=== PATIENT | female | born 1950 | race Caucasian/White ===

== ENCOUNTER 2022-12-06 09:30 | Day surgery (SDC) | payer MEDICARE, MEDICAID, SELFPAY ==
[2022-12-06] VITALS (10 sets, daily range): BP systolic 110–125; BP diastolic 76–87; PULSE 75–76; RESP 16–17; TEMP 36.2–36.7; O2SAT 94–97; BMI 22.8
[2022-12-06] MEDS: Lactated Ringers 1,000 ML 15 ML IV (10:18)
--- NOTE | 2022-12-06 10:38 | PCM.HP.BLA ---
History and Physical Date of Admission: 12/06/22 Date of Service: 12/04/22 MR#: [id number] Acct: [id number] Name: SERA SYKES Rep #: [id number] : 1950 Provider: Dr. Tonya Best MD Age/Sex: 72/F Location: [facility] Status: Signed with Addenda ADDENDUM by Liliya Ruiz on 12/05/22 at 1252 Intake Chief Complaint: pleurex cath Allergies wilfred flavor Allergy (Verified 12/04/22 14:14) Swellingcodeine Adverse Reaction (Verified 12/04/22 14:14) OtherIodinated Contrast Media [Iodinated Contrast Media - IV Dye] Adverse Reaction (Verified 12/04/22 14:14) Other Medications acetaminophen 650 mg rectal suppository 650 mg MN Q6H PRN 12/05/22 [History Confirmed 12/05/22] bisacodyl 10 mg rectal suppository 10 mg MN DAILY PRN 12/05/22 [History Confirmed 12/05/22] carvedilol 12.5 mg tablet 12.5 mg PO BID 12/05/22 [History Confirmed 12/05/22] furosemide 40 mg tablet (Lasix) 40 mg PO DAILY 12/05/22 [History Confirmed 12/05/22] gabapentin 300 mg capsule 300 mg PO TID PRN pain 12/05/22 [History Confirmed 12/05/22] haloperidol lactate 2 mg/mL oral concentrate 1 mg PO Q6H PRN 12/05/22 [History Confirmed 12/05/22] hydralazine 50 mg tablet 50 mg PO TID 12/05/22 [History Confirmed 12/05/22] hyoscyamine sulfate 0.125 mg tablet 0.125 mg PO .qid PRN 12/05/22 [History Confirmed 12/05/22] lorazepam 0.5 mg tablet (Ativan) 0.5 mg PO Q8H PRN anxiety 12/05/22 [History Confirmed 12/05/22] mirtazapine 7.5 mg tablet 7.5 mg PO QHS 12/05/22 [History Confirmed 12/05/22] morphine concentrate 100 mg/5 mL (20 mg/mL) oral solution 5 mg PO Q4H PRN 12/05/22 [History Confirmed 12/05/22] olanzapine 5 mg tablet 5 mg PO QHS 12/05/22 [History Confirmed 12/05/22] omeprazole 20 mg capsule,delayed release 20 mg PO DAILY 12/05/22 [History Confirmed 12/05/22] ondansetron 4 mg disintegrating tablet 4 mg PO Q6H PRN nausea 12/05/22 [History Confirmed 12/05/22] oxycodone 5 mg tablet 5 mg PO Q4H PRN 12/05/22 [History Confirmed 12/05/22] oxycodone 5 mg tablet,oral ONLY (not feeding tubes) (Oxaydo) 5 mg PO Q4H PRN pain 12/05/22 [History Confirmed 12/05/22] prochlorperazine maleate 10 mg tablet 10 mg PO Q8H PRN 12/05/22 [History Confirmed 12/05/22] promethazine 12.5 mg tablet 12.5 mg PO .q 8 hours PRN 12/05/22 [History Confirmed 12/05/22] sennosides 8.6 mg tablet (senna) 8.6 mg PO DAILY PRN 12/05/22 [History Confirmed 12/05/22] spironolactone 50 mg tablet (Aldactone) 50 mg PO BID 12/05/22 [History Confirmed 12/05/22] Assessment and Plan Assessment and Plan (1) Abdominal ascites: Status: Acute (2) Mesothelioma: Status: Acute (3) Metastasis to liver: Status: Acute 12/05/224 <Electronically signed by Tonya Best MD> Date Tonya Best MD cc: ~* Signed Intake Vital Signs 07/13/1418:23 12/04/2313:34 Height 5 ft 6 in 5 ft 4 in Weight: 128 lb BMI 21.9 BP 130/93 H Blood Pressure Location Rt brachial Position Sitting Respiration 18 Pulse Oximetry (%) 98 Oxygen Delivery Method room air Intake Visit Reasons: PLEUREX CATH PLACEMENT Chief Complaint: pleurex cath International Marketing Manager Required: No Allergies wilfred flavor Allergy (Verified 12/04/22 14:14) Swellingcodeine Adverse Reaction (Verified 12/04/22 14:14) OtherIodinated Contrast Media [Iodinated Contrast Media - IV Dye] Adverse Reaction (Verified 12/04/22 14:14) Other [facility] Medical History (Updated 12/05/22 @ 10:[address] Tonya Best MD) Acid reflux Arthritis Fatigue Hemorrhoids High blood pressure Mesothelioma Metastasis to liver Nausea SOB (shortness of breath) Weight loss Surgical History (Updated 12/04/22 @ 14:13 by Maryjane Gonzales) S/P foot surgery S/P hemorrhoidectomy S/P right heart catheterization S/P tubal ligation Family History (Updated 12/04/22 @ 14:13 by Maryjane Gonzales) Sister Asthma Breast cancer Diabetes Hypertension Social History (Updated 12/04/22 @ 14:14 by Maryjane Gonzales) Smoking Status: Former smoker alcohol intake: never HPI HPI HPI: 72-year-old female presents due to malignant ascites for Pleurx catheter. Patient is currently on hospice due to mesothelioma and with metastatic disease to the liver as well as large volume ascites. Patient has recently been tapped on 11/15 for about 6 L and 11/26 for about 5 L. Patient previously had an open gallbladder as well as left chest surgery due to mesothelioma in 2020 including rib and lung. Patient is currently not on any blood thinners. Patient states she does start to feel full when the fluid starts to fill back up which she is starting to feel currently as it has been about 11 days between the 2 previous ROS General General: Yes weight change and fatigue; No colon cancer HEENT HEENT: No difficulty swallowing, eye injury, eye surgery, swollen glands or hoarseness Endo Endocrine: No thyroid disease, diabetes mellitus, thyroid cancer, Hair loss, heat intolerance or cold intolerance Musc Musculoskeletal: Yes arthritis; No back problems Cardio Cardiovascular: No chest pain Psych Psychiatric: Yes depression and anxiety Resp Respiratory: Yes shortness of breath, No sleep apnea, No cough, No COPD, No asthma, No emphysema and No wheezing Gastro Gastrointestinal: No abdominal pain, Yes nausea or vomiting, No diarrhea, No constipation, No blood in stool, Yes acid reflux, Yes hemorrhoids, No ulcers, No gallbladder problem and No black,tarry stools Oni Hematologic: No blood thinners, No blood disorders, No bleeding, No anemia and No blood clots Neuro Neurologic: No numbness and No tingling Exam Const General: comfortable and no acute distress HENMT Head: normal to inspection Neck Neck: supple Resp Effort & Inspection: normal respiratory effort Cardio Rate: regular rate GI Inspection: incision (Well-healed right subcostal) Palpation: soft, no guarding, nontender and ascites Skin General: no erythema Neuro General: patient alert, patient awake, patient oriented x3 and CN's II-XI intact bilaterally Extrem General: normal to inspection Psych Affect: normal affect Assessment and Plan Assessment and Plan (1) Abdominal ascites: Status: Acute (2) Mesothelioma: Status: Acute (3) Metastasis to liver: Status: Acute Plan Discussed with patient or family plan to place Pleurx catheter in her abdomen to allow her to drain the ascites at hospice and not having to come back for paracentesis every 11 or so days. Discussed the procedure including risk not limited to bleeding, infection, injury to another organ. Patient currently had no further questions this time. Tonya Best M.D. Pager: [phone] [facility] [address] [place] [address], [facility], [address] [place] [address] Office: [phone] Coding Level of Care Code Off vis,new,level 3 Diagnoses Abdominal ascites R18.8 Mesothelioma C45.9 Metastasis to liver C78.7 12/05/22 1059 <Electronically signed by Tonya Best MD> Date Tonya Best MD
[2022-12-06] MEDS: Cefazolin 2 GM in 0.9% Normal Saline 100 ML IV (11:18)
[2022-12-06] MEDS: Bupivacaine Mpf 0.5% 30 ML VIAL (11:28)
--- NOTE | 2022-12-06 11:52 | PCM.OPRPT ---
Report of Operation Date of Procedure: 12/06/22 Pre-Operative Diagnosis: Abdominal ascites, mesothelioma, metastatic disease to the liver Post-Operative Diagnosis: Same Surgery/Procedure Performed:: Placement of the abdominal Pleurx catheter Description of Surgical Findings:: Drainage of 5 L of straw-colored fluid Surgeon: Tonya Best Type of Anesthesia: Local MAC Anesthesiologist: Ramiro Salgado Special Medications: Ancef 2 g IV x1 Specimen's removed: 5 L serous fluid-not sent Estimated Blood Loss (mL): < 10 cc Description of Procedure: Patient was brought to operating placed spinal operating table. Timeout was completed verifying correct patient, procedure, site, positioning prior to being procedure. MAC anesthesia was induced. the right abdomen was prepped draped in usual sterile fashion. Ultrasound was used to identify the fluid pocket. Local of 0.5% Marcaine was infiltrated at the area of entry. Needle was placed and straw fluid was aspirated?Angiocath was advanced and the guidewire was placed after needle was removed. Additional incision was made with a 15 blade scalpel to tunneled the catheter superiorly to the entry location. The catheter was tunneled to the planned place of entry. Dilators were placed over the wire along with the introducer was then placed. Catheter was placed under fluoroscopy. Straw-colored fluid was drained for about 5 L. Incisions were sutured with horizontal mattress sutures with 3-0 silk in the catheter was sutured in place with 3-0 silk as well. The tube was dressed with the gauze pad from the kit along with 4 x 4's and OpSite. Patient tolerated procedure well. Taken to the postanesthesia care unit in stable condition. Complications none
--- NOTE | 2022-12-06 11:57 | DCINST_ITS ---
Discharge Instructions Diet Discharge Diet: No restrictions Dressing / Incision Call your doctor if your incision/area has: Continuous Slow Oozing and Increased Redness Remove Dressing in: 2 days (2 to 3 days) Follow Up Care Test Results: Test results from this visit will be discussed in further detail at your follow- up appointment, if applicable. Discharge Plan Admission Attending Provider: Tonya Best Primary Care Provider: Luis Mccann Discharge Orders/Prescriptions Prescriptions: Continued hydralazine 50 mg tablet 50 mg PO TID furosemide [Lasix] 40 mg tablet 40 mg PO DAILY sennosides [senna] 8.6 mg tablet 8.6 mg PO DAILY PRN (Reason: constipation) promethazine 12.5 mg tablet 12.5 mg PO .q 8 hours PRN (Reason: nausea and vomiting) acetaminophen 650 mg suppository 650 mg DE Q6H PRN (Reason: pain) Patient Comments: pain bisacodyl 10 mg suppository 10 mg DE DAILY PRN (Reason: constipation) haloperidol lactate 2 mg/mL concentrate 1 mg PO Q6H PRN (Reason: agitation) hyoscyamine sulfate 0.125 mg tablet 0.125 mg PO .qid PRN (Reason: dyspepsia) prochlorperazine maleate 10 mg tablet 10 mg PO Q8H PRN (Reason: nausea and vomiting) morphine concentrate 100 mg/5 mL (20 mg/mL) solution 5 mg PO Q4H PRN (Reason: pain) olanzapine 5 mg tablet 5 mg PO QHS oxycodone 5 mg tablet 5 mg PO Q4H PRN (Reason: pain) omeprazole 20 mg capsule,delayed release(DR/EC) 20 mg PO DAILY carvedilol 12.5 mg tablet 12.5 mg PO BID Rx Instructions: must administer with a meal/food gabapentin 300 mg capsule 300 mg PO TID PRN (Reason: pain) mirtazapine 7.5 mg tablet 7.5 mg PO QHS ondansetron 4 mg tablet,disintegrating 4 mg PO Q6H PRN (Reason: nausea) Oxaydo 5 mg tablet, oral only 5 mg PO Q4H PRN (Reason: pain) lorazepam [Ativan] 0.5 mg tablet 0.5 mg PO Q8H PRN (Reason: anxiety) spironolactone [Aldactone] 50 mg tablet 50 mg PO BID Referrals / Follow Up: Luis Mccann MD [Primary Care Provider] - Disposition Disposition (needs filled in before D/C Order can be placed): Home, Self Care
== END 2022-12-06 13:11 | disposition home or self-care (01) ==
LOC: SDC 09:40 → AC 09:41
PROVIDERS: PCP Family Medicine; Referring Provider Surgery; Visit Provider Surgery
PROC: (CPT 32550; principal; 2022-12-06 10:55)
DX: C45.7 Mesothelioma of other sites (principal); C78.7 Secondary malignant neoplasm of liver and intrahepatic bile duct; R18.0 Malignant ascites; I10 Essential (primary) hypertension; K21.9 Gastro-esophageal reflux disease without esophagitis; Z51.5 Encounter for palliative care; Z79.899 Other long term (current) drug therapy; Z87.891 Personal history of nicotine dependence
CPT/HCPCS: 32550; 00520; 76000; J7120; C1729; J2405

== ENCOUNTER 2023-02-08 19:20 | Emergency (ER) | payer MEDICARE, MEDICAID, SELFPAY ==
[2023-02-08 19:20] VITALS: BP 131/91; PULSE 92; RESP 18; TEMP 36.6; O2SAT 97; BMI 43.1
--- NOTE | 2023-02-08 19:38 | EX.ED.DYSGE1 ---
HPI <CALOS Leach - Last Filed: 02/08/23 19:43> History of Present Illness Chief Complaint: Fall Narrative Narrative: Patient is on hospice for mesothelioma at [facility]. She bent over to put something in the fridge felt lightheaded and struck her head on the ground. No LOC or blood thinners. She has a scalp laceration and presents for evaluation. Denies headache visual changes nausea or vomiting. No other injuries. PFSH <CALOS Leach - Last Filed: 02/08/23 19:43> [facility] Medical History (Updated 02/08/23 @ 19:38 by CALOS Leach) Acid reflux Ambulates with cane Arthritis Cancer Colitis Fatigue Fatty liver Gastric reflux Hemorrhoids High blood pressure History of renal disease Mesothelioma Metastasis to liver Nausea Non-smoker On home oxygen therapy SOB (shortness of breath) Wears dentures Wears glasses Wears hearing aid Weight loss Home Medications acetaminophen 650 mg rectal suppository 650 mg CO Q6H PRN pain 12/05/22 [History Last Taken Unknown] bisacodyl 10 mg rectal suppository 10 mg CO DAILY PRN constipation 12/05/22 [History Last Taken Unknown] carvedilol 12.5 mg tablet 12.5 mg PO BID 12/05/22 [History Last Taken 12/06/22] furosemide 40 mg tablet (Lasix) 40 mg PO DAILY 12/05/22 [History Last Taken Unknown] gabapentin 300 mg capsule 300 mg PO TID PRN pain 12/05/22 [History Last Taken Unknown] haloperidol lactate 2 mg/mL oral concentrate 1 mg PO Q6H PRN agitation 12/05/22 [History Last Taken Unknown] hydralazine 50 mg tablet 50 mg PO TID 12/05/22 [History Last Taken Unknown] hyoscyamine sulfate 0.125 mg tablet 0.125 mg PO .qid PRN dyspepsia 12/05/22 [History Last Taken Unknown] lorazepam 0.5 mg tablet (Ativan) 0.5 mg PO Q8H PRN anxiety 12/05/22 [History Last Taken 12/06/22] mirtazapine 7.5 mg tablet 7.5 mg PO QHS 12/05/22 [History Last Taken Unknown] morphine concentrate 100 mg/5 mL (20 mg/mL) oral solution 5 mg PO Q4H PRN pain 12/05/22 [History Last Taken Unknown] olanzapine 5 mg tablet 5 mg PO QHS 12/05/22 [History Last Taken Unknown] omeprazole 20 mg capsule,delayed release 20 mg PO DAILY 12/05/22 [History Last Taken 12/06/22] ondansetron 4 mg disintegrating tablet 4 mg PO Q6H PRN nausea 12/05/22 [History Last Taken Unknown] oxycodone 5 mg tablet 5 mg PO Q4H PRN pain 12/05/22 [History Last Taken Unknown] oxycodone 5 mg tablet,oral ONLY (not feeding tubes) (Oxaydo) 5 mg PO Q4H PRN pain 12/05/22 [History Last Taken Unknown] prochlorperazine maleate 10 mg tablet 10 mg PO Q8H PRN nausea and vomiting 12/05/22 [History Last Taken Unknown] promethazine 12.5 mg tablet 12.5 mg PO .q 8 hours PRN nausea and vomiting 12/05/22 [History Last Taken Unknown] sennosides 8.6 mg tablet (senna) 8.6 mg PO DAILY PRN constipation 12/05/22 [History Last Taken Unknown] spironolactone 50 mg tablet (Aldactone) 50 mg PO BID 12/05/22 [History Last Taken Unknown] Allergy/AdvReac Type Severity Reaction Status Date / Time wilfred flavor Allergy Swelling Verified 12/06/22 10:18 codeine AdvReac Other Verified 12/06/22 10:18 Iodinated Contrast Media AdvReac Other Verified 12/06/22 10:18 [Iodinated Contrast Media - IV Dye] Family History (Updated 12/04/22 @ 14:13 by Maryjane Gonzales) Sister Asthma Breast cancer Diabetes Hypertension Surgical History History of colonoscopy History of hysterectomy History of laparoscopic cholecystectomy History of lung surgery S/P foot surgery S/P hemorrhoidectomy S/P right heart catheterization S/P tubal ligation Social History (Updated 12/04/22 @ 14:14 by Maryjane Gonzales) Smoking Status: Never smoker alcohol intake: never ROS <CALOS Leach - Last Filed: 02/08/23 19:43> ROS ED ROS Narrative Eyes: Negative for visual change. GI: Negative for nausea, vomiting. Neuro: Negative for headache, motor/sensory dysfunction. Skin: Positive for wound. EXAM <CALOS Leach Last Filed: 02/08/23 19:43> Physical Exam Narrative Exam Narrative: CONST: Patient sitting in no acute distress. EYES: Normal inspection. PERRLA, EOMI. HEAD: 2 cm left parieto-occipital scalp laceration, no deformity or crepitus, no raccoon eyes or dawkins sign, no hemotympanum, no nasal septal hematoma, no CSF otorrhea or rhinorrhea. NECK: Normal inspection. No midline spinal tenderness, no step off or crepitus. RESP: No respiratory distress, CTAB. CVS: Regular rate and rhythm, no murmur, no gallop. EXTREMITIES: Normal appearance, full ROM, nontender, 2+ radial and DP pulses. NEURO: Oriented x4. PSYCH: Normal affect. Const Vital Signs: 02/08/23 19:20 02/08/23 19:38 02/08/23 20:05 Temperature 97.8 F Temperature Source Temporal Pulse Rate 92 Respiratory Rate 18 16 Respiratory Effort Normal Non-Labored Blood Pressure 131/91 H Blood Pressure Mean 104 Pulse Ox 97 Oxygen Delivery Method Room Air <Dr. Bharat Altman DO - Last Filed: 02/08/23 21:31> Physical Exam Const Vital Signs: 02/08/23 19:20 02/08/23 19:38 02/08/23 20:05 Temperature 97.8 F Temperature Source Temporal Pulse Rate 92 Respiratory Rate 18 16 Respiratory Effort Normal Non-Labored Blood Pressure 131/91 H Blood Pressure Mean 104 Pulse Ox 97 Oxygen Delivery Method Room Air MDM <CALOS Leach Last Filed: 02/08/23 19:43> [facility] MDM Narrative Medical decision making narrative: History gathered from: Patient and family Patient was bending over or felt lightheaded and fell striking her head on the ground. No loss of consciousness or blood thinners. She has a 2 cm scalp laceration with no evidence of basilar skull fracture. She is neurologically intact. She is on hospice and we mutually agreed that a CT scan is not needed as they would not want intervention. Wound was cleansed and I placed 2 freddy for closure. I discussed wound care and she was discharged in stable condition. <Dr. Bharat Altman DO - Last Filed: 02/08/23 21:31> [facility] Treatment and Re-Evaluation :: ED attending note: I evaluated the patient in conjunction with the FANG. I agree with his/her statements and above findings. I have personally performed a face to face assessment of the patient and have reviewed the FANG Note. I performed a substantive portion of the visit including all aspects of the following. I personally saw the patient performed chart review, physical exam, reviewed labs, imaging (if obtained), and formulated a treatment and management plan. Brief history: 73-year-old female here with fall from standing. Exam: Nursing triage notes reviewed, Vital signs reviewed Constitutional: please see mdm HENT: MMM no cephalhematoma, small 1 cm laceration to posterior occiput bleeding controlled. Eyes: Pupils equal round and reactive to light, Extraocular muscles intact no entrapment Neck: No stridor, no JVD, full neck ROM, no midline step-offs deformities Lungs: Clear to auscultation, No wheezing or rales. No increased work of breathing, no conversational dyspnea, no accessory muscle use, no nasal flaring. No respiratory distress noted no flail chest or crepitus noted to the chest Heart: Regular rate and rhythm, No murmurs, No rubs and No gallops, 2+ distal pulses (radial, femoral, posterior tibial) in all extremities Abdomen: Soft, there is no tenderness, rigidity, rebound or guarding, no obvious peritoneal signs, no palpable pulsatile abdominal masses, no auscultated abdominal bruit Pelvis: Pelvis stable to compression : No CVAT Extremities: No edema, no obvious deformities Neuro: No focal neurological deficits, cranial nerves II through XII intact, 5/5 strength in all extremities. Intact sensation to light touch in all extremities, 2+ reflexes bilateral patella dens. Normal gait. No ataxia. Skin: apProximately 1 cm laceration noted MDM/plan: Chief Complaint: Head injury External records reviewed: No recent imaging of the head noted Factors affecting care: [History of mesothelioma Social determinants of health: Elderly History obtained from others: Patient's family Consults: Hospice care Goals of care discussion: DNR CC, currently on hospice care MDM narrative: 73-year-old female here with fall and head trauma. There is no LOC. She is on a blood thinner. She is of advanced age however has no focal deficits and is on hospice. Risk and benefits of advanced imaging were discussed with the patient and family they agreed to forego imaging at this time. They are alert and orient x3 no capacity to make her medical symptoms and chose to go imaging of the patient's hospice status. They requested just repair of the laceration and discharge. Strict return precautions were discussed. Infection precautions were discussed. Suture/staple removal precautions were discussed Shared decision making: I will have a discussion with the patient and or visitors regarding risk/benefits of further testing or admission. They will be made aware of of the risk/benefits inherent in this decision they will be given the opportunity to voice understanding. Discharge Plan Triage Chief Complaint: Fall ED Midlevel Provider: Jacquelyn Trammell ED Provider: Bharat Altman Dx/Rx/DC Orders Clinical Impression: CHI (closed head injury), Laceration of scalp Instructions: ED Head Injury (Adult), ED Laceration Scalp Stitches or Switzer Prescriptions: No Action hydralazine 50 mg tablet 50 mg PO TID furosemide [Lasix] 40 mg tablet 40 mg PO DAILY sennosides [senna] 8.6 mg tablet 8.6 mg PO DAILY PRN (Reason: constipation) promethazine 12.5 mg tablet 12.5 mg PO .q 8 hours PRN (Reason: nausea and vomiting) acetaminophen 650 mg suppository 650 mg CO Q6H PRN (Reason: pain) Patient Comments: pain bisacodyl 10 mg suppository 10 mg CO DAILY PRN (Reason: constipation) haloperidol lactate 2 mg/mL concentrate 1 mg PO Q6H PRN (Reason: agitation) hyoscyamine sulfate 0.125 mg tablet 0.125 mg PO .qid PRN (Reason: dyspepsia) prochlorperazine maleate 10 mg tablet 10 mg PO Q8H PRN (Reason: nausea and vomiting) morphine concentrate 100 mg/5 mL (20 mg/mL) solution 5 mg PO Q4H PRN (Reason: pain) olanzapine 5 mg tablet 5 mg PO QHS oxycodone 5 mg tablet 5 mg PO Q4H PRN (Reason: pain) omeprazole 20 mg capsule,delayed release(DR/EC) 20 mg PO DAILY carvedilol 12.5 mg tablet 12.5 mg PO BID Rx Instructions: must administer with a meal/food gabapentin 300 mg capsule 300 mg PO TID PRN (Reason: pain) mirtazapine 7.5 mg tablet 7.5 mg PO QHS ondansetron 4 mg tablet,disintegrating 4 mg PO Q6H PRN (Reason: nausea) Oxaydo 5 mg tablet, oral only 5 mg PO Q4H PRN (Reason: pain) lorazepam [Ativan] 0.5 mg tablet 0.5 mg PO Q8H PRN (Reason: anxiety) spironolactone [Aldactone] 50 mg tablet 50 mg PO BID Primary Care Provider: Luis Mccann Referrals: Luis Mccann MD [Primary Care Provider] - Activity Restrictions/Additional Instructions: Please have the freddy removed in 1 week. Monitor the wound for signs of infection like redness swelling or pus and be reevaluated immediately if this occurs.
[2023-02-08 20:05] VITALS: RESP 16
--- NOTE | 2023-02-08 20:07 | ED.RN ---
ROLLATOR NOT A BEDSIDE. TRANSPORT CALLED.
== END 2023-02-08 21:40 | disposition home or self-care (01) ==
LOC: ED 19:55
PROVIDERS: Emergency Provider Emergency Medicine; PCP Family Medicine; Visit Provider Emergency Medicine
DX: S01.01XA Laceration without foreign body of scalp, initial encounter (principal); W19.XXXA Unspecified fall, initial encounter; Z99.81 Dependence on supplemental oxygen
CPT/HCPCS: 12001; 99284